=== PATIENT | male | born 1995 | race Caucasian/White ===

== ENCOUNTER 2018-02-13 11:03 | Emergency (ER) | payer OTHER ==
--- NOTE | 2018-02-13 12:01 | EDPHY ---
H & P Stated Complaint: neck pain Time Seen by Provider: 02/13/18 11:40 HPI/ROS: CHIEF COMPLAINT: Right sided neck pain HISTORY OF PRESENT ILLNESS: 22-year-old male with remote history of cervical spinous process fracture when he was in high school when a squat bar impacted his posterior cervical spine. He has had chronic neck pain ever since. Today he was"aggressively"towel drying his hair when he felt immediate pain in his right posterior cervical region. No direct trauma or fall. No peripheral paresthesia, weakness, numbness. No radicular symptoms. No headache. No visual disturbance. Pain is reproducible with range of motion and palpation. Denies history of major minor head or neck trauma or manipulation. No visual disturbance. No facial paresthesia. REVIEW OF SYSTEMS: A ten point review of systems was performed and is negative with the exception of the items mentioned in the HPI PAST MEDICAL & SURGICAL HISTORY: Remote history of cervical spinous process fracture. Chronic neck pain. SOCIAL HISTORY:Nonsmoker. PHYSICAL EXAM (Prior to examination, patient consented to physical exam, hands were washed and my usual and customary physical exam procedures followed) 1) GENERAL: Well-developed, well-nourished, alert and oriented. Answering questions appropriately 2) HEAD: Normocephalic, atraumatic 3) HEENT: Pupils equal, round, reactive to light bilaterally. Sclera anicteric. Negative Dave's. Nasopharynx, oropharynx, clear, no lesions. MoistDry mucous membranes. Ears bilaterally with normal tympanic membranes. 4) NECK: Limited range of motion secondary to pain in the right cervical paraspinous region right trapezius muscle. He also has focal tenderness in the same location. He has no midline pain, no fluctuance no step-off. 5) LUNGS: Clear auscultation bilaterally, no wheezes, no rhonchi, no retractions. 6) HEART: Regular rate and rhythm, no murmur, no heave, no gallop. 7) ABDOMEN: No guarding, no rebound, no focal tenderness, negative McBurney's, negative Myrick's, negative Rovsing's, negative peritoneal sign, 8) MUSCULOSKELETAL: Moving all extremities, no focal areas of tenderness, no obvious trauma. No peripheral edema or discoloration. 9) BACK: No CVA tenderness, no midline vertebral tenderness, no fluctuance, no step-off, no obvious trauma, no visual or palpable abnormality. 10) SKIN: No rash, no petechiae. 11) NEURO: Awake, alert, and oriented to person, place and time. Answers questions appropriately. There were no obvious focal neurologic abnormalities. No cerebellar dysfunction. Cranial nerves 2 through to 12 intact. Normal steady gait. Upper and lower extremities bilaterally with strength 5 / 5, reflexes 2+.. DIFFERENTIAL DIAGNOSIS: In no particular order my differential includes but is not limited to deep space infection, cervico-cranial vessel disssection, muscle strain. - Personal History Current Tetanus/Diphtheria Vaccine: Yes Current Tetanus Diphtheria and Acellular Pertussis (TDAP): Yes - Medical/Surgical History Hx Asthma: Yes Hx Chronic Respiratory Disease: No Hx Diabetes: No Hx Cardiac Disease: No Hx Renal Disease: No Hx Cirrhosis: No Hx Alcoholism: No Hx HIV/AIDS: No Hx Splenectomy or Spleen Trauma: No Other PMH: cervical vertebrae fx, asthma, - Social History Smoking Status: Former smoker Constitutional: Initial Vital Signs Temperature (C) 36.5 C 02/13/18 11:19 Heart Rate 48 L 02/13/18 11:19 Respiratory Rate 16 02/13/18 11:19 Blood Pressure 132/88 H 02/13/18 11:19 O2 Sat (%) 98 02/13/18 11:19 O2 Delivery Mode Room Air Allergies/Adverse Reactions: No Known Allergies Allergy (Unverified 02/13/18 11:19) Home Medications: Medication Instructions Recorded Cyclobenzaprine [Flexeril 10 MG 10 mg PO TID #15 tab 02/13/18 (RX)] Vyvanse 02/13/18 Medical Decision Making ED Course/Re-evaluation: I think that the patient's symptoms are more than likely secondary to muscular strain. I think that cervical-cranial vessel dissection less than likely in this patient at this time. I think that dislocation or fracture of the cervical spine is less than likely as well. I do not think that imaging studies definitively indicated at this time. I discussed this with the patient and she is in agreement and feels comfortable with this treatment plan. My usual and customary cervical precautions and instructions have been provided including avoiding manipulation of the area. I saw this patient independently based on established practice protocols. Care of patient under supervision of secondary supervising physician Dr Don Nuñez. Departure - Departure Disposition: Home, Routine, Self-Care Clinical Impression: Cervical strain, acute Qualifiers: Encounter type: initial encounter Qualified Code(s): S16.1XXA - Strain of muscle, fascia and tendon at neck level, initial encounter Condition: Good Instructions: Cervical Strain (ED) Additional Instructions: Return to the ER immediately if you experience new or worsening neck pain, dizziness, visual disturbance, double vision, lightheadedness, facial droop, or any other symptoms that concern you. Avoid deep tissue massage and chiropractic manipulation, until symptom-free, and cleared by your regular health care provider. Referrals: Phillip Beckman MD [Medical Doctor] - 5-7 days, call for appt. Prescriptions: Cyclobenzaprine [Flexeril 10 MG (RX)] 10 mg PO TID #15 tab
[2018-02-13] MEDS ORDERED: CYCLOBENZAPRINE 10 MG TAB PO ONE (12:24)
[2018-02-13 12:42] VITALS: BP 139/91
== END 2018-02-13 12:41 | disposition home or self-care (01) ==
DX: S16.1XXA Strain of muscle, fascia and tendon at neck level, initial encounter (principal); Z87.891 Personal history of nicotine dependence

== ENCOUNTER 2018-02-15 11:12 | Emergency (ER) | payer OTHER ==
[2018-02-15] MEDS ORDERED: predniSONE 20 MG TAB PO ONE (12:53)
[2018-02-15] MEDS ORDERED: DIAZEPAM 5 MG TAB PO ONE (12:53)
[2018-02-15] MEDS ORDERED: IBUPROFEN 600 MG TAB PO ONE (12:57)
--- NOTE | 2018-02-15 12:57 | EDPHY ---
H & P Time Seen by Provider: 02/15/18 12:37 HPI/ROS: CHIEF COMPLAINT: Persisting neck pain HISTORY OF PRESENT ILLNESS: 22-year-old male presents emergency department with ongoing persisting neck pain. He denies any known trauma or injury however he does states that he has a stomach sleeper. He was seen in the emergency department 2 days ago and was given cyclobenzaprine however he does not feel this is working. He denies paresthesias in his upper extremities. Denies feelings of weakness in the upper extremities. He has a history of chronic neck pain from injury high school. ROS: Denies headache, fever, paresthesias or weakness in upper extremities. Past Medical/Surgical History: Chronic neck pain Social History: Single Smoking Status: Former smoker Physical Exam: Nontender to palpate along cervical or thoracic or lumbar spine. No palpable crepitus or other bony abnormality. Patient has reproducible pain with palpation to the right trapezius muscle and right sternocleidomastoid muscle. Radial, median, and ulnar nerves are all intact. No weakness noted on examination. Constitutional: Initial Vital Signs Temperature (C) 36.5 C 02/15/18 11:16 Heart Rate 84 02/15/18 11:16 Respiratory Rate 16 02/15/18 11:16 Blood Pressure 94/78 L 02/15/18 11:16 O2 Sat (%) 96 02/15/18 11:16 O2 Delivery Mode Room Air Allergies/Adverse Reactions: No Known Allergies Allergy (Verified 02/15/18 11:16) Home Medications: Medication Instructions Recorded Cyclobenzaprine [Flexeril 10 MG 10 mg PO TID #15 tab 02/13/18 (RX)] Vyvanse 02/13/18 Diazepam [Valium] 5 mg PO TIDPRN PRN #15 tab 02/15/18 predniSONE 60 mg PO DAILY #15 tab 02/15/18 MDM/Departure - MDM Medications Given: Discontinued Medications Diazepam (Valium) 5 mg PO EDNOW ONE Stop: 02/15/18 12:54 Last Admin: 02/15/18 12:57 Dose: 5 mg Ibuprofen (Motrin) 600 mg PO EDNOW ONE Stop: 02/15/18 12:58 Last Admin: 02/15/18 13:01 Dose: 600 mg Prednisone (Prednisone) 60 mg PO EDNOW ONE Stop: 02/15/18 12:54 Last Admin: 02/15/18 12:57 Dose: 60 mg ED Course/Re-evaluation: I think this patient's symptoms are likely musculoskeletal in nature. He has reproducible pain with palpation to the right trapezius and right sternocleidomastoid muscle. His reflexes are symmetrical. His radial, median, and ulnar nerves are all intact. I do not think emergent imaging is necessary in the emergency department. He will be treated with oral Valium. He was also given oral prednisone. He was given referral to Neurosurgery and told to return if he develops feelings of weakness, paresthesias in his upper extremities, increasing pain or any other concerns. Mother at bedside was comfortable with this plan. - Depart Disposition: Home, Routine, Self-Care Clinical Impression: Torticollis, spasmodic Cervical strain Qualifiers: Encounter type: initial encounter Qualified Code(s): S16.1XXA - Strain of muscle, fascia and tendon at neck level, initial encounter Condition: Good Instructions: Diazepam (By mouth), Prednisone (By mouth), Cervical Strain (ED) , Spasmodic Torticollis (ED) Additional Instructions: Warm moist heat were as discussed to help relieve spasm. Ibuprofen 600 mg every 8 hr as needed for pain. Prednisone daily for 5 days. Valium as needed for muscular spasm, caution drowsiness with this medication. Return to the emergency department sooner if you developed numbness or tingling in her fingers , feelings of weakness in her upper extremities, or if you feel worse in any way. Prescriptions: Diazepam [Valium] 5 mg PO TIDPRN PRN #15 tab PRN Reason: P.r.n. Spasms predniSONE 60 mg PO DAILY #15 tab Referrals: Tyrell Martins MD [Medical Doctor] - As per Instructions (Neurosurgeon on-call)
[2018-02-15 13:04] VITALS: BP 105/66
== END 2018-02-15 13:03 | disposition home or self-care (01) ==
DX: S16.1XXA Strain of muscle, fascia and tendon at neck level, initial encounter (principal); Z87.891 Personal history of nicotine dependence
CPT/HCPCS: J7512

== ENCOUNTER 2018-08-04 14:14 | Emergency (ER) | payer OTHER ==
[2018-08-04 14:31] VITALS: BP 111/86
--- NOTE | 2018-08-04 14:50 | EDPHY ---
H & P Stated Complaint: pain in LLQ, inguinal area Time Seen by Provider: 08/04/18 14:50 HPI/ROS: CHIEF COMPLAINT: Left inguinal pain HISTORY OF PRESENT ILLNESS: The patient presents the emergency department with several days of sharp left inguinal pain. Patient reports normal bowel movements. He did have slight nausea. He denies any dysuria or hematuria. The patient has no complaints of flank pain. He was concerned about the possibility of a hernia or appendicitis which prompted his visit to the ED. REVIEW OF SYSTEMS: A comprehensive 10 point review of systems is otherwise negative aside from elements mentioned in the history of present illness. Source: Patient - Personal History Current Tetanus/Diphtheria Vaccine: Yes Current Tetanus Diphtheria and Acellular Pertussis (TDAP): Yes - Medical/Surgical History Hx Asthma: Yes Hx Chronic Respiratory Disease: No Hx Diabetes: No Hx Cardiac Disease: No Hx Renal Disease: No Hx Cirrhosis: No Hx Alcoholism: No Hx HIV/AIDS: No Hx Splenectomy or Spleen Trauma: No Other PMH: cervical vertebrae fx, asthma, - Social History Smoking Status: Former smoker - Physical Exam Exam: General Appearance: Alert, no distress Eyes: Pupils equal and round no pallor or injection ENT, Mouth: Mucous membranes moist Respiratory: There are no retractions, lungs are clear to auscultation Cardiovascular: Regular rate and rhythm Gastrointestinal: Tenderness to palpation left lower quadrant, no obvious inguinal hernia Neurological: A&O, normal motor function, normal sensory exam, normal cranial nerves Skin: Warm and dry, no rashes Musculoskeletal: Neck is supple nontender Extremities: symmetrical, full range of motion Constitutional: Initial Vital Signs Temperature (C) 36.8 C 08/04/18 14:27 Heart Rate 69 08/04/18 14:27 Respiratory Rate 16 08/04/18 14:27 Blood Pressure 111/86 H 08/04/18 14:27 O2 Sat (%) 93 08/04/18 14:27 O2 Delivery Mode Room Air Allergies/Adverse Reactions: No Known Allergies Allergy (Verified 02/15/18 11:16) Home Medications: Medication Instructions Recorded Cyclobenzaprine [Flexeril 10 MG 10 mg PO TID #15 tab 02/13/18 (RX)] Vyvanse 02/13/18 Diazepam [Valium] 5 mg PO TIDPRN PRN #15 tab 02/15/18 predniSONE 60 mg PO DAILY #15 tab 02/15/18 Medical Decision Making ED Course/Re-evaluation: Patient presents to the ED with left inguinal pain. I was unable to palpate an obvious hernia. I did consult with Dr. Feliciano Freed who is on-call for surgery and asked him to evaluate the patient. Dr. Freed could not palpate an obvious hernia. It is certainly possible he has a small fascial deficit. Patient was also told the certainly could have a very small element of incarcerated fat. There is no clinical evidence of a obvious large strangulated hernia. Patient was offered a CT scan of the abdomen pelvis for further characterization although it was felt it would unlikely contribute to his clinical course. The patient is comfortable being discharged home and taking the the Tylenol and ibuprofen. He will follow up with Dr. Freed for a office visit for any ongoing symptoms. Patient is advised to return to the ED for markedly worsening pain, fever, hematuria, swelling in the left lower quadrant or other concerns. Differential Diagnosis: Differential diagnosis considered includes inguinal hernia, myofascial strain, rectus hematoma Departure - Departure Disposition: Home, Routine, Self-Care Clinical Impression: Left inguinal pain Condition: Good Instructions: Groin Pain (ED) Additional Instructions: 1. Please return to the ED for fever, vomiting, swelling noted to the groin, markedly worsening symptoms or other concerns. 2. Please follow-up with Dr. Freed for any ongoing symptoms. 3. Take Ibuprofen or Motrin 600 mg by mouth three times a day. Referrals: Feliciano Freed MD [Medical Doctor] - As per Instructions
== END 2018-08-04 15:45 | disposition home or self-care (01) ==
DX: R10.32 Left lower quadrant pain (principal)